=== PATIENT | male | born 1975 | race Caucasian/White ===

== ENCOUNTER 2023-07-15 13:18 | Outpatient (CLI) | payer MEDICAID, SELFPAY | END 2023-07-15 13:19 | disposition home or self-care (01) | PROVIDERS: Visit Provider Nurse Practitioner Family | DX: R31.9 Hematuria, unspecified (principal) | CPT/HCPCS: 80048; 81015; 84153; 85025; 87086 ==

== ENCOUNTER 2023-11-08 14:47 | Outpatient (CLI) | payer MEDICAID, SELFPAY | END 2023-11-08 14:48 | disposition home or self-care (01) | LOC: KYNREF 14:48 | PROVIDERS: PCP Nurse Practitioner Family; Visit Provider Nurse Practitioner Family | DX: R31.9 Hematuria, unspecified (principal); R39.198 Other difficulties with micturition | CPT/HCPCS: 81015; 87086 ==

== ENCOUNTER 2023-12-24 12:53 | Outpatient (CLI) | payer OTHER, SELFPAY ==
--- NOTE | 2023-12-24 13:00 | CT_ITS ---
Patient: JAYNE XIAO Facility:?[facility] Patient ID:?[id number] Site Patient ID:?[id number]. Site :?[id number] Study:?CT-Abdomen/Pelvis UROGRAM W/ 120CC ISOVUE 370-12/24/2023 1:56:35 PM Ordering Physician:JHONATAN Final Report: INDICATION: HEMATURIA CT ABDOMEN AND PELVIS WITHOUT AND WITH CONTRAST TECHNIQUE: Multidetector CT imaging was performed through the abdomen and pelvis prior to and following intravenous contrast administration using 120 mL Isovue 370. Coronal and sagittal reconstructions were generated. COMPARISON: None. FINDINGS: Lower chest: Minimal basilar lung atelectasis. Liver: Within normal limits. Gallbladder and bile ducts: Contracted gallbladder. No gallbladder wall thickening or calcified gallstones. No biliary dilation identified. Pancreas: Unremarkable. Spleen: Normal. Adrenals: No nodules or masses. Kidneys, ureters, and urinary bladder: No right renal calculi. 18 x 13 x 13 millimeter stone within the left renal pelvis. Multiple small stones in the lower pole collecting system of the left kidney are also present. No ureteral stones. Mild dilation of the left renal pelvis and intrarenal collecting system. Mild left peripelvic fat stranding. Normal opacification of the right ureter but only trace opacification of the proximal left ureter. No evidence of renal mass or urinary bladder mass. No bladder wall thickening. Gastrointestinal tract: Normal caliber small bowel without wall thickening or obstruction. The appendix is normal. There are several diverticula of the sigmoid colon, without evidence of diverticulitis. Vascular structures: Normal caliber abdominal aorta with minimal atherosclerotic calcification at its bifurcation. Peritoneum: No free air, abscess, or significant free fluid. Lymph nodes: No pathologically enlarged nodes identified. Reproductive organs: No pelvic masses. Bones: Moderate multilevel spondylosis, greatest in the lower lumbar spine. IMPRESSION: 1. Obstructing 18 x 13 x 13 millimeter stone in the left renal pelvis producing mild left hydronephrosis. Additional small nonobstructing stones are noted in the lower pole collecting system of the left kidney. 2. Mild fat stranding adjacent to the left renal pelvis, likely due to the obstructing stone, less likely due to infection. Correlation with urinalysis is suggested. 3. No evidence of renal mass or bladder mass. 4. Nonacute additional findings as detailed above. CLEMENTINE JHAVERI MD [employer] Dictated by Pietro Jhaveri MD @ 12/27/2023 12:49:36 AM Please note that all CT scans at this facility use dose modulation, iterative reconstruction, and/or weight-based dosing when appropriate to reduce radiation dose to as low as reasonably achievable. Dictated by: Pietro Jhaveri MD @ 12/27/2023 00:49:53 Signed by:?Pietro Jhaveri MD @12/27/2023 12:49:53 AM (Electronic Signature)
== END 2023-12-24 12:54 | disposition home or self-care (01) ==
PROVIDERS: PCP Nurse Practitioner Family; Visit Provider Nurse Practitioner Family
DX: R31.9 Hematuria, unspecified (principal); N13.2 Hydronephrosis with renal and ureteral calculous obstruction; R33.9 Retention of urine, unspecified
CPT/HCPCS: 74178; Q9967

== ENCOUNTER 2023-12-27 14:20 | Outpatient (CLI) | payer OTHER, SELFPAY | END 2023-12-27 14:21 | disposition home or self-care (01) | LOC: KYNREF 14:22 | PROVIDERS: PCP Nurse Practitioner Family; Visit Provider Nurse Practitioner Family | DX: N20.0 Calculus of kidney (principal); N13.8 Other obstructive and reflux uropathy | CPT/HCPCS: 81001; 87086 ==